=== PATIENT | female | born 1970 | race Caucasian/White ===

== ENCOUNTER 2017-08-08 15:34 | Emergency (ER) | payer OTHER ==
[~2017-08-08] VITALS: Ht 167.6 cm; Wt 111.8 kg
[~2017-08-08 15:34] MED LIST: DICLOFENAC50 MG OR; DOXYCYCL HYC100 M3 PO; ESTRACE1 MG PO; FLAGYL500 MG OR; GLUCOPHAGE500 MG PO; HYDROCHLOR12.5 MG/CA PO; HYDROCHLOROT12.5 M1 PO; HYDROCHLOROT12.5 MG PO; KLOR-CON M1010 MEQ OR; LEVOTHROID75 MCG PO; LEVOTHYROXIN50 MCG PO; LEVOTHYROXIN75 MC1 PO; LORTAB 5 OR; LORTAB 7.5-3251 TAB PO; METFORMIN500 M2 PO; METFORMIN500 MG OR; METFORMIN500 MG PO; METHOCARBAM750 MG PO; METRONIDAZOLE500 MG PO; MOTRIN600 MG/TAB PO; MULTI VIT PO; NAPROSYN500 MG PO; NAPROXEN375 MG OR; NO; OMEPRAZOLE20 MG PO; ONE TOUCH ULTRA 50; PRILOSEC OTC20 MG OR; PROMETHAZINE12.5 M4 OR; PROVENTIL HFA IN; ROCEPHIN 2250 MG/VIA IM; TRAZODONE150 MG OR; TRAZODONE50 MG PO; ULTRAM50 M1 PO; ZOFRAN ODT4 MG OR; ZOFRAN ODT8 MG PO
[2017-08-08] MEDS ORDERED: LEVOTHYROXIN100 MC1 PO (15:57)
[2017-08-08] MEDS ORDERED: SYMBICORT1 AE1 IN (15:58)
[2017-08-08] MEDS ORDERED: PROAIR HFA108 MCG/AC IN (15:58)
[2017-08-08] MEDS ORDERED: TORADOL PO (16:33)
[2017-08-08 16:40] VITALS: BP 129/81
== END 2017-08-08 16:40 | disposition home or self-care (01) | DRG 563 ==
LOC: ED 15:34
PROC: 2W3KX1Z Immobilization of Left Finger using Splint (ICD-10-PCS; principal; 2017-08-08)
DX: S62.623A Displaced fracture of middle phalanx of left middle finger, initial encounter for closed fracture (principal); W23.1XXA Caught, crushed, jammed, or pinched between stationary objects, initial encounter; Y93.83 Activity, rough housing and horseplay; Y92.008 Other place in unspecified non-institutional (private) residence as the place of occurrence of the external cause

== ENCOUNTER 2017-09-13 13:21 | Emergency (ER) | payer OTHER ==
[~2017-09-13] VITALS: Ht 167.6 cm; Wt 121.3 kg
[~2017-09-13 13:21] MED LIST changes: +LEVOTHYROXIN100 MC1 PO; +PROAIR HFA108 MCG/AC IN; +SYMBICORT1 AE1 IN; +TORADOL PO
[2017-09-13 14:23] LABS: IMMATURE GRANULOCYTES 0.3 % (0.0-1.0); MEAN CELL VOLUME 87.3 fL CALC (80.0-100.0); MEAN CORPUSCULAR HGB 29.5 pG CALC (26.0-32.0); MEAN CORPUSCULAR HGB CONC 33.8 g/L CALC (32.0-36.0); NEUT# 5.13 thou/uL (2.00-7.15); RED BLOOD COUNT 4.55 mill/uL (4.20-5.60); RED CELL DISTRI WIDTH 12.6 % (11.5-15.5)
[2017-09-13 14:25] LABS: HEMATOCRIT 39.7 % (37.0-47.0); HEMOGLOBIN 13.4 g/dl (12.0-16.0)
[2017-09-13 14:40] LABS: ALKALINE PHOSPHATASE 83 u/l (38-126); ANION GAP 14 (6-22 (CALC)); BILIRUBIN, TOTAL 0.5 mg/dL (0.0-1.4); BUN 14 mg/dL (7-17); BUN/CREATININE RATIO 18 (12-20 (CALC)); CARBON DIOXIDE 28 mmol/l (22-30); CHLORIDE 105 mmol/l (95-108); CREATININE 0.8 mg/dL (0.5-1.0); GFR > 60 ML/MIN (>=60 (CALC)); GFR FOR AFR.AMER. > 60 ML/MIN (>=60 (CALC)); POTASSIUM 3.8 mmol/l (3.5-5.1); SGPT/ALT 71 u/l (9-52); SODIUM 143 mmol/l (137-146)
[2017-09-13 14:44] LABS: ALBUMIN 4.6 g/dL (3.2-5.0); SGOT/AST 52 u/l (14-36); TOTAL PROTEIN 8.2 g/dL (6.3-8.2)
[2017-09-13 14:51] LABS: MYOGLOBIN 31 ng/mL (0 - 62)
[2017-09-13] MEDS ORDERED: TORADOL PO (15:15)
[2017-09-13 15:40] VITALS: BP 138/79
== END 2017-09-13 15:40 | disposition home or self-care (01) ==
LOC: ED 13:21
PROVIDERS: Family Medicine
DX: M94.0 Chondrocostal junction syndrome [Tietze] (principal); E11.9 Type 2 diabetes mellitus without complications; Z79.84 Long term (current) use of oral hypoglycemic drugs; J45.909 Unspecified asthma, uncomplicated; R07.9 Chest pain, unspecified

== ENCOUNTER 2017-09-17 16:39 | Emergency (ER) | payer OTHER ==
[~2017-09-17] VITALS: Ht 167.6 cm; Wt 105.0 kg
[2017-09-17] MEDS ORDERED: TORADOL PO (18:59)
[2017-09-17 19:28] VITALS: BP 149/91
== END 2017-09-17 19:28 | disposition home or self-care (01) ==
LOC: ED 16:39
DX: S80.12XA Contusion of left lower leg, initial encounter (principal); E11.9 Type 2 diabetes mellitus without complications; J45.909 Unspecified asthma, uncomplicated; W17.2XXA Fall into hole, initial encounter; Y93.55 Activity, bike riding

== ENCOUNTER 2017-09-25 17:05 | Emergency (ER) | payer OTHER ==
[~2017-09-25] VITALS: Ht 167.6 cm; Wt 116.0 kg
[2017-09-25 17:52] VITALS: BP 140/80
== END 2017-09-25 17:59 | disposition home or self-care (01) ==
LOC: ED 17:05
DX: S60.032A Contusion of left middle finger without damage to nail, initial encounter (principal); E11.9 Type 2 diabetes mellitus without complications; J45.909 Unspecified asthma, uncomplicated; X50.0XXA Overexertion from strenuous movement or load, initial encounter; Y93.89 Activity, other specified; Y92.009 Unspecified place in unspecified non-institutional (private) residence as the place of occurrence of the external cause

== ENCOUNTER 2018-02-14 15:23 | Emergency (ER) | payer OTHER ==
[~2018-02-14] VITALS: Ht 167.6 cm; Wt 129.6 kg
[2018-02-14 16:08] LABS: HEMATOCRIT 36.8 % (37.0-47.0); HEMOGLOBIN 12.4 g/dl (12.0-16.0); IMMATURE GRANULOCYTES 0.7 % (0.0-5.0); MEAN CELL VOLUME 86.8 fL CALC (80.0-100.0); MEAN CORPUSCULAR HGB 29.2 pG CALC (26.0-32.0); MEAN CORPUSCULAR HGB CONC 33.7 g/L CALC (32.0-36.0); NEUT# 6.65 thou/uL (2.00-7.15); RED BLOOD COUNT 4.24 mill/uL (4.20-5.60); RED CELL DISTRI WIDTH 13.1 % (11.5-15.5)
[2018-02-14 16:15] LABS: URINE BILIRUBIN - DIPSTICK NEGATIVE (NEGATIVE); URINE BLOOD DIPSTICK NEGATIVE (NEGATIVE); URINE COLOR YELLOW; URINE GLUCOSE - DIPSTICK NEGATIVE (NEGATIVE); URINE KETONE NEGATIVE (NEGATIVE); URINE LEUK ESTERASE NEGATIVE (NEGATIVE); URINE NITRITE - DIPSTICK NEGATIVE (Negative); URINE PROTEIN - DIPSTICK TRACE mg/dL (NEG-TRACE); URINE SPECIFIC GRAVITY >=1.030; URINE UROBILINOGEN - DIPSTICK 0.2 E.U./dL (0.2)
[2018-02-14 16:28] LABS: ALBUMIN 3.9 g/dL (3.2-5.0); ALKALINE PHOSPHATASE 81 u/l (38-126); AMYLASE 69 u/l (30-110); ANION GAP 13 (6-22 (CALC)); BILIRUBIN, TOTAL 0.5 mg/dL (0.0-1.4); BUN 19 mg/dL (7-17); BUN/CREATININE RATIO 26 (12-20 (CALC)); CARBON DIOXIDE 28 mmol/l (22-30); CHLORIDE 103 mmol/l (95-108); CREATININE 0.7 mg/dL (0.5-1.0); GFR > 60 ML/MIN (>=60 (CALC)); GFR FOR AFR.AMER. > 60 ML/MIN (>=60 (CALC)); LIPASE 165 u/l (23-300); SGOT/AST 53 u/l (14-36); SODIUM 140 mmol/l (137-146)
[2018-02-14] MEDS ORDERED: TRAMADOL HCL50 MG PO (17:51)
[2018-02-14] MEDS ORDERED: TORADOL PO (17:51)
[2018-02-14 17:55] VITALS: BP 148/67
== END 2018-02-14 18:12 | disposition home or self-care (01) ==
LOC: ED 15:23
PROVIDERS: Family Medicine
DX: R07.89 Other chest pain (principal); E11.9 Type 2 diabetes mellitus without complications; J45.909 Unspecified asthma, uncomplicated; R10.11 Right upper quadrant pain

== ENCOUNTER 2019-12-23 15:55 | Emergency (ER) | payer OTHER ==
[~2019-12-23] VITALS: Ht 167.6 cm; Wt 100.0 kg
[~2019-12-23 15:55] MED LIST changes: -METFORMIN500 MG PO; +TRAMADOL HCL50 MG PO
[2019-12-23] MEDS ORDERED: BACTRIM DS1 TAB PO (16:20)
[2019-12-23] MEDS ORDERED: NORVASC2.5 M1 PO (16:34)
[2019-12-23 16:40] VITALS: BP 139/97
== END 2019-12-23 16:41 | disposition home or self-care (01) ==
LOC: ED 15:55
DX: L02.211 Cutaneous abscess of abdominal wall (principal); E11.9 Type 2 diabetes mellitus without complications; J45.909 Unspecified asthma, uncomplicated; Z79.84 Long term (current) use of oral hypoglycemic drugs

== ENCOUNTER 2019-12-25 13:00 | Emergency (ER) | payer OTHER ==
[~2019-12-25] VITALS: Ht 167.6 cm; Wt 97.0 kg
[~2019-12-25 13:00] MED LIST changes: +BACTRIM DS1 TAB PO; +NORVASC2.5 M1 PO
[2019-12-25 13:20] VITALS: BP 137/96
[2019-12-25] MEDS ORDERED: LEVOTHYROXIN125 MC1 PO (13:23)
== END 2019-12-25 13:20 | disposition home or self-care (01) ==
LOC: ED 13:00
DX: Z48.01 Encounter for change or removal of surgical wound dressing (principal); J45.909 Unspecified asthma, uncomplicated; E11.9 Type 2 diabetes mellitus without complications; Z79.84 Long term (current) use of oral hypoglycemic drugs

== ENCOUNTER 2020-07-31 08:32 | Observation (INO) | payer OTHER ==
[~2020-07-31] VITALS: Ht 167.6 cm; Wt 53.0 kg
[~2020-07-31 08:32] MED LIST changes: +LEVOTHYROXIN125 MC1 PO
--- NOTE | 2020-07-31 08:50 | NUR ---
PT AMBUALTED TO ROOM. PT INSTRUCTED ON PLAN OF CARE.
--- NOTE | 2020-07-31 09:30 | NUR ---
PT RESTING IN ROOM. NO DISTRESS NOTED.
[2020-07-31 09:31] LABS: HEMATOCRIT 45.8 % (37.0-47.0); IMMATURE GRANULOCYTES 0.4 % (0.0-5.0); MEAN CELL VOLUME 84.7 fL CALC (80.0-100.0); MEAN CORPUSCULAR HGB 28.5 pG CALC (26.0-32.0); MEAN CORPUSCULAR HGB CONC 33.6 g/dL CAL (32.0-36.0); NEUT# 5.63 thou/uL (2.00-7.15); RED BLOOD COUNT 5.41 mill/uL (4.20-5.60); RED CELL DISTRI WIDTH 12.2 % (11.5-15.5)
[2020-07-31 09:50] LABS: HEMOGLOBIN 15.4 g/dl (12.0-16.0)
[2020-07-31 10:01] LABS: ALBUMIN 4.4 g/dL (3.2-5.0); AMYLASE 92 u/l (30-110); ANION GAP 15 (6-22 (CALC)); BILIRUBIN, TOTAL 0.4 mg/dL (0.0-1.4); BUN 14 mg/dL (7-17); BUN/CREATININE RATIO 20 (12-20 (CALC)); CARBON DIOXIDE 27 mmol/l (22-30); CHLORIDE 97 mmol/l (95-108); CREATININE 0.7 mg/dL (0.5-1.0); ETHYL ALCOHOL 0 mg/dl (0-30); GFR > 60 ML/MIN (>=60 (CALC)); GFR FOR AFR.AMER. > 60 ML/MIN (>=60 (CALC)); LIPASE 298 u/l (23-300); POTASSIUM 3.8 mmol/l (3.5-5.1); SGOT/AST 80 u/l (14-36); SODIUM 135 mmol/l (137-146); TOTAL PROTEIN 8.2 g/dL (6.3-8.2)
[2020-07-31 10:04] LABS: ALKALINE PHOSPHATASE 136 u/l (38-126)
--- NOTE | 2020-07-31 10:30 | NUR ---
PT BACK FROM US.
[2020-07-31 10:50] LABS: URINE BILIRUBIN - DIPSTICK NEGATIVE (NEGATIVE); URINE BLOOD DIPSTICK NEGATIVE (NEGATIVE); URINE COLOR YELLOW; URINE GLUCOSE - DIPSTICK >=1000 mg/dL (NEGATIVE); URINE KETONE TRACE mg/dL (NEGATIVE); URINE LEUK ESTERASE NEGATIVE (NEGATIVE); URINE PH 5.5 (4.5-8.0); URINE PROTEIN - DIPSTICK TRACE mg/dL (NEG-TRACE); URINE SPECIFIC GRAVITY 1.025; URINE UROBILINOGEN - DIPSTICK 0.2 E.U./dL (0.2)
[2020-07-31 10:51] LABS: URINE NITRITE - DIPSTICK NEGATIVE (Negative)
--- NOTE | 2020-07-31 11:38 | NUR ---
PT RESTING IN ROOM. NO DISTRESS NOTED.
--- NOTE | 2020-07-31 12:00 | NUR ---
PT AWARE OF DELAY IN TRANSFER. NO ISSUES AT THIS TIME.
--- NOTE | 2020-07-31 13:31 | NUR ---
PT IS AWARE OF WAIT.
--- NOTE | 2020-07-31 14:30 | NUR ---
PT RESTING IN ROOM.
--- NOTE | 2020-07-31 15:00 | NUR ---
NO ISSUES AT THIS TIME.
--- NOTE | 2020-07-31 16:00 | NUR ---
NO ISSUES AT THIS TIME.
--- NOTE | 2020-07-31 17:00 | NUR ---
PT RESTING IN ROOM. PAIN IS BETTER.
--- NOTE | 2020-07-31 18:28 | NUR ---
PT TRANPSORTED TO [facility].
--- NOTE | 2020-07-31 18:48 | NUR ---
CURRENTLY AT [facility] FOR CT SCAN
--- NOTE | 2020-07-31 23:27 | NUR ---
RETURNED FROM [facility].
--- NOTE | 2020-08-01 | NUR ---
ADVISED OF PLANS TO ADMIT.
--- NOTE | 2020-08-01 01:08 | NUR ---
RESTING COMFORTABLY AWAITING ADMISSION
--- NOTE | 2020-08-01 01:53 | NUR ---
Admission Note Report Given to: SRIDEVI ARIAS Transported by: X Wheelchair Stretcher Transported with: Y Nurse Transporter Y Patent IV O2 Vending Machine Attendant Location: ICU Y MS[facility]
[2020-08-01 02:00] VITALS: BP 143/82
--- NOTE | 2020-08-01 02:00 | NUR ---
PT RECEIVED FROM ED TO ROOM 273. ARRIVES VIA W/C ACCOMPANIED BY DANIEL LAUREANO. PT AMBULATORY TO BED. GAIT STEADY. PT MEDICATED IN THE ED AND DENIES PAIN AT THIS TIME. ORIENTED TO UNIT, ROOM, CALL RAMON, LIGHTS, TV. ICE WATER PROVIDED. CALL RAMON WITHIN REACH. AGREES TO CALL PRN.
--- NOTE | 2020-08-01 02:15 | NUR ---
PHYSICAL ASSESMENT COMPLETE. PT CURRENTLY DENIES PAIN OR DISCOMFORT. SCHEDULED MEDICATIONS AND PRN MEDICATION ADMINISTERED, SEE E-MAR. PT DENIES ANY NEEDS AT THIS TIME. PLAN OF CARE REVIEWED, PT DENIES QUESTIONS, VERBALIZES UNDERSTANDING. ITEMS WITHIN REACH, BED LOCKED IN LOW POSITION W/ BEDRAILS UP X2. CALL RAMON WITHIN REACH, AGREES TO CALL PRN.
[2020-08-01 03:11] VITALS: BP 128/79
[2020-08-01 03:13] VITALS: BP 108/83
[2020-08-01 04:58] LABS: IMMATURE GRANULOCYTES 0.3 % (0.0-5.0); MEAN CELL VOLUME 85.5 fL CALC (80.0-100.0); MEAN CORPUSCULAR HGB 28.4 pG CALC (26.0-32.0); MEAN CORPUSCULAR HGB CONC 33.2 g/dL CAL (32.0-36.0); NEUT# 4.15 thou/uL (2.00-7.15); RED BLOOD COUNT 4.61 mill/uL (4.20-5.60); RED CELL DISTRI WIDTH 12.4 % (11.5-15.5)
[2020-08-01 05:07] LABS: HEMATOCRIT 39.4 % (37.0-47.0); HEMOGLOBIN 13.1 g/dl (12.0-16.0)
[2020-08-01 05:27] LABS: ALBUMIN 3.6 g/dL (3.2-5.0); ALKALINE PHOSPHATASE 102 u/l (38-126); ANION GAP 11 (6-22 (CALC)); BILIRUBIN, TOTAL 0.5 mg/dL (0.0-1.4); BUN 22 mg/dL (7-17); BUN/CREATININE RATIO 32 (12-20 (CALC)); CARBON DIOXIDE 27 mmol/l (22-30); CHLORIDE 103 mmol/l (95-108); CREATININE 0.7 mg/dL (0.5-1.0); GFR > 60 ML/MIN (>=60 (CALC)); GFR FOR AFR.AMER. > 60 ML/MIN (>=60 (CALC)); SGOT/AST 94 u/l (14-36); SODIUM 136 mmol/l (137-146); TOTAL PROTEIN 6.6 g/dL (6.3-8.2)
[2020-08-01 07:30] VITALS: BP 124/77
--- NOTE | 2020-08-01 07:30 | NUR ---
PT LAYING IN BED. A&O X4. NO DISTRESS NOTED. PT DENIES ANY ABD PAIN OR NAUSEA AT THIS TIME. C/O OF HEADACHE 09/12, TO BE NOTIFIED. CLEAR BREATH SOUNDS HEARD UPON AUSCULTATION. ACTIVE BOWEL SOUNDS X4 QUADRANTS. #20 LAC HEALTHY AND PATENT WITH IVF INFUSING PER MAR ORDERS. NPO STATUS REMAINS AT THIS TIME. ASSESSMENT COMPLETED. DISCUSSED POC. CALL LIGHT WITHIN REACH.
--- NOTE | 2020-08-01 10:02 | NUR ---
DR SIN AND Manuel SEE APRN AT BEDSIDE DISCUSSING POC
[2020-08-01 11:13] VITALS: BP 117/72
--- NOTE | 2020-08-01 13:58 | NUR ---
Discharge instructions given along with the importance of holding metformin x48 hours due to Iv contrast with CT scan, to be resumed Monday08/03/20. Patient verbalizes understanding of same. Discharged in stable condition via wheelchair to home accompanied by staff. All belongings sent with pt.
== END 2020-08-01 14:35 | disposition home or self-care (01) ==
LOC: ED 08:32 → ED-I 08-01 01:00 → ED 08-01 01:17 → MS2 08-01 01:18
PROVIDERS: ADMIT Internal Medicine; ATTEND Internal Medicine
DX: R10.11 Right upper quadrant pain (principal); R16.0 Hepatomegaly, not elsewhere classified; E11.9 Type 2 diabetes mellitus without complications; J45.909 Unspecified asthma, uncomplicated; Z79.84 Long term (current) use of oral hypoglycemic drugs; Z20.822 Contact with and (suspected) exposure to COVID-19
CPT/HCPCS: G0378; Q9967; S0164

== ENCOUNTER 2022-03-04 09:40 | Emergency (ER) | payer OTHER ==
[~2022-03-04] VITALS: Ht 172.7 cm; Wt 116.4 kg
[2022-03-04] VITALS (7 sets, daily range): BP systolic 121–139; BP diastolic 77–96
[2022-03-04] MEDS ORDERED: FLEXERIL5 M1 PO (11:07)
== END 2022-03-04 11:17 | disposition home or self-care (01) ==
LOC: ED 09:40
DX: M25.511 Pain in right shoulder (principal); I10 Essential (primary) hypertension; E11.9 Type 2 diabetes mellitus without complications; Z79.84 Long term (current) use of oral hypoglycemic drugs

== ENCOUNTER 2023-08-27 15:36 | Emergency (ER) | payer OTHER ==
[~2023-08-27] VITALS: Ht 172.7 cm; Wt 110.2 kg
[~2023-08-27 15:36] MED LIST changes: +FLEXERIL5 M1 PO; +IMITREX100 MG PO; +JARDIANCE25 MG PO; +LEVOTHYROXIN137 MCG PO; +LOSARTAN POTAS100 MG PO; +NAPROXEN500 MG PO; +OXYBUTYNIN CHLOR5 M2 PO; +PROPRANOLOL HYD20 MG PO; +TRULICITY4.5 MG/0.5 SC; +VENTOLIN HFA108 MCG IN
[2023-08-27 16:17] VITALS: BP 139/94
[2023-08-27 16:30] VITALS: BP 135/94
[2023-08-27 16:45] VITALS: BP 132/91
[2023-08-27] MEDS ORDERED: IBUPROFEN 800 MG/TAB PO ONE (16:45)
[2023-08-27 17:00] VITALS: BP 129/85
[2023-08-27 17:08] VITALS: BP 129/85
== END 2023-08-27 17:14 | disposition home or self-care (01) | DRG 153 ==
LOC: ED 15:36
DX: J02.9 Acute pharyngitis, unspecified (principal); I10 Essential (primary) hypertension; E11.9 Type 2 diabetes mellitus without complications; E78.5 Hyperlipidemia, unspecified; Z20.822 Contact with and (suspected) exposure to COVID-19; Z79.85 Long-term (current) use of injectable non-insulin antidiabetic drugs